=== PATIENT | male | born 1950 | race African-American/Black ===

== ENCOUNTER 2019-11-23 07:40 | Inpatient (IN) ==
[2019-11-23 08:36] LABS: Basophils % 0.6 % (0.0-0.8); Eosinophils # 0.3 10*3/uL (0.0-0.87); Eosinophils % 7.3 % (0.00-10.9); Hematocrit 43.6 VOL% (42.0-52.0); Immature Granulocytes % 0.2 %; Immature Granulocytes Absolute 0.01 #; Lymphocytes # 1.1 10*3/uL (1.4-4.0); Lymphocytes % 22.5 % (21.2-54.2); Mean Corpuscular HGB Conc 32.1 GM/DL (32-36); Mean Platelet Volume 10.6 FL (9.6-12.0); Monocytes % 7.9 % (1.7-12.7); Neutrophils % 61.5 % (38.7-73.9); Platelet Count 186 T/CUMM (130-400); Red Blood Count 5.01 MC/CUMM (3.8-5.5); Red Cell Distribution Width 14.7 % (9.3-17.3); White Blood Count 4.7 T/CUMM (4-12)
[2019-11-23 08:52] LABS: INR 1.3; PT Patient Result 13.3 SECS (9.8-11.9); Partial Thromboplastin Time 32.3 SECS (23.9-33.8)
[2019-11-23 09:06] LABS: Albumin 3.2 G/DL (3.4-5.0); Bilirubin,Total 1.3 MG/DL (0.2-1.0); Calcium 9.2 MG/DL (8.5-10.1)
[2019-11-23] MEDS ORDERED: AZITHROMYCIN INJ 500 MG in SODIUM CHLORIDE 0.9% 250 ML IV STA (09:46)
[2019-11-23] MEDS ORDERED: GLUCAGON 1 MG VIAL IM PRN (11:09)
[2019-11-23] MEDS ORDERED: DEXTROSE 50% 25 GM/50 ML VIAL IV PRN (11:09)
[2019-11-23] MEDS ORDERED: SIMETHICONE CHEW 125 MG TABLET PO PRN (11:09)
[2019-11-23] MEDS ORDERED: BISACODYL 5 MG TABLET PO PRN (11:09)
[2019-11-23] MEDS ORDERED: ACETAMINOPHEN 325 MG TABLET PO PRN (11:09)
[2019-11-23] MEDS ORDERED: ONDANSETRON 4 MG/2 ML VIAL IV PRN (11:09)
[2019-11-23 11:44] LABS: Ferritin 135.6 ng/ml (26-388)
[2019-11-23] MEDS ORDERED: DEXTROSE 10% 250 ML BAG IV PRN (12:20)
[2019-11-23 12:49] LABS: Apearance,Urine Slightly Hazy (Clear); Bacteria,Urine Occasional /HPF (Few); Bilirubin,Urine Negative (Negative); Blood, Urine Negative (Negative); Glucose,Urine (UA) Negative (Negative); Hyaline Casts,Urine 1 /LPF (0-3); Ketones,Urine Negative (Negative); Mucus,Urine Occasional /LPF (Occasional); Nitrite,Urine Negative (Negative); Protein,Urine Negative; RBC,Urine 10 /HPF (0-4); Urine Color Amber (Yellow); Urine Specific Gravity 1.019 (1.001-1.035); Urine Urobilinogen < 2.0 EU/DL (0.2-1.0); WBC,Urine 1 /HPF (0-6)
[2019-11-23 12:55] LABS: Barbiturates Screen,Urine Negative (Negative); Benzodiazepines Screen,Urine Negative (Negative); Cannabinoid Screen,Urine Negative (Negative); Opiate Screen,Urine Negative (Negative); Phencyclidine Screen,Urine Negative (Negative)
[2019-11-23] MEDS ORDERED: IPRATROPIUM/ALBUTEROL INHALER INH SCH (13:00)
[2019-11-23] MEDS: ENOXAPARIN 40 MG/0.4 ML SYRINGE SUBCUT SCH (13:44)
[2019-11-23] MEDS: methylPREDNISolone SOD SUC 40 MG/1 ML VIAL IV SCH (18:14)
[2019-11-23] MEDS: cefTRIAXone 1,000 MG in SYRINGE 1 EACH IV SCH (18:14)
[2019-11-23] MEDS: ALBUTEROL INHALER 18 GM INH SCH (20:04)
[2019-11-23] MEDS: ZALEPLON 5 MG CAPSULE PO PRN (21:19)
[2019-11-23] MEDS: carvediloL 6.25 MG TABLET PO SCH (21:19)
[2019-11-24] MEDS: ALBUTEROL INHALER 18 GM INH SCH ×4 (00:45→19:15)
[2019-11-24] MEDS: methylPREDNISolone SOD SUC 40 MG/1 ML VIAL IV SCH ×3 (02:49→17:01)
[2019-11-24 07:04] LABS: Basophils % 0.2 % (0.0-0.8); Hematocrit 42.3 VOL% (42.0-52.0); Hemoglobin 13.5 GM/DL (14.0-18.0); Immature Granulocytes % 0.5 %; Immature Granulocytes Absolute 0.03 #; Lymphocytes # 0.7 10*3/uL (1.4-4.0); Lymphocytes % 13.1 % (21.2-54.2); Mean Corpuscular HGB Conc 31.9 GM/DL (32-36); Mean Platelet Volume 10.6 FL (9.6-12.0); Monocytes % 0.7 % (1.7-12.7); Neutrophils % 85.5 % (38.7-73.9); Platelet Count 185 T/CUMM (130-400); Red Blood Count 4.86 MC/CUMM (3.8-5.5); Red Cell Distribution Width 15.1 % (9.3-17.3); White Blood Count 5.7 T/CUMM (4-12)
[2019-11-24 07:28] LABS: Osmolality,Calculated 275.1 MOS/KG (273-304)
[2019-11-24] MEDS: carvediloL 6.25 MG TABLET PO SCH ×2 (08:41→17:01)
[2019-11-24] MEDS: ASPIRIN EC 81 MG TABLET PO SCH (08:41)
[2019-11-24] MEDS: AZITHROMYCIN 250 MG TABLET PO SCH (08:42)
[2019-11-24] MEDS: SIMVASTATIN 40 MG TABLET PO SCH (08:42)
[2019-11-24] MEDS: ENOXAPARIN 40 MG/0.4 ML SYRINGE SUBCUT SCH (08:44)
[2019-11-24] MEDS: cefTRIAXone 1,000 MG in SYRINGE 1 EACH IV SCH (08:45)
[2019-11-24] MEDS ORDERED: AZITHROMYCIN INJ 500 MG in SODIUM CHLORIDE 0.9% 250 ML IV SCH (09:00)
[2019-11-24] MEDS ORDERED: NON-FORMULARY MEDICATION (Umeclidinium-Vilanterol [Anoro Ellipta] 1 inh) INH SCH (09:00)
[2019-11-24] MEDS ORDERED: PANTOPRAZOLE 40 MG TABLET PO SCH (09:00)
[2019-11-24] MEDS: ZALEPLON 5 MG CAPSULE PO PRN (20:49)
[2019-11-25] MEDS: ALBUTEROL INHALER 18 GM INH SCH ×3 (00:33→14:08)
[2019-11-25] MEDS: methylPREDNISolone SOD SUC 40 MG/1 ML VIAL IV SCH ×2 (00:33→09:23)
[2019-11-25 06:25] LABS: Calcium 9.3 MG/DL (8.5-10.1); Osmolality,Calculated 280.8 MOS/KG (273-304)
[2019-11-25 07:06] LABS: Basophils % 0.1 % (0.0-0.8); Hematocrit 43.6 VOL% (42.0-52.0); Hemoglobin 13.6 GM/DL (14.0-18.0); Immature Granulocytes % 0.7 %; Immature Granulocytes Absolute 0.12 #; Lymphocytes % 6.1 % (21.2-54.2); Mean Corpuscular HGB Conc 31.2 GM/DL (32-36); Mean Corpuscular Volume 88.6 FL (87-102); Mean Platelet Volume 10.9 FL (9.6-12.0); Monocytes % 1.7 % (1.7-12.7); Neutrophils % 91.4 % (38.7-73.9); Platelet Count 199 T/CUMM (130-400); Red Blood Count 4.92 MC/CUMM (3.8-5.5); Red Cell Distribution Width 15.3 % (9.3-17.3); White Blood Count 16.2 T/CUMM (4-12)
[2019-11-25 07:13] LABS: Bilirubin,Total 0.6 MG/DL (0.2-1.0); Osmolality,Calculated 283.7 MOS/KG (273-304); Total Protein 7.7 G/DL (6.4-8.3)
[2019-11-25 07:35] LABS: Anisocytosis 2+; Band Neutrophils 3 % (0-10); Lymphocytes 6 % (20-55); Macrocytosis Slight; Platelet Estimate Normal; Segmented Neutrophils 86 % (50-85); Total Cells Counted 100
[2019-11-25] MEDS: AZITHROMYCIN 250 MG TABLET PO SCH (09:20)
[2019-11-25] MEDS: carvediloL 6.25 MG TABLET PO SCH (09:21)
[2019-11-25] MEDS: ENOXAPARIN 40 MG/0.4 ML SYRINGE SUBCUT SCH (09:21)
[2019-11-25] MEDS: ASPIRIN EC 81 MG TABLET PO SCH (09:21)
[2019-11-25] MEDS: cefTRIAXone 1,000 MG in SYRINGE 1 EACH IV SCH (09:22)
[2019-11-25] MEDS: SIMVASTATIN 40 MG TABLET PO SCH (09:23)
[2019-11-25 09:37] VITALS: BP 173/105
[2019-11-25] MEDS: FUROSEMIDE 40 MG/4 ML VIAL IV ONE ×2 (12:16→12:51)
== END 2019-11-25 13:44 | disposition home or self-care (01) | DRG 196 ==
LOC: N.ED 07:40 → N.EDINP 10:55 → N.2E 12:01
PROVIDERS: ADMIT Internal Medicine; ATTEND Internal Medicine